=== PATIENT | male | born 2000 | race Two or more races ===

== ENCOUNTER 2024-12-19 15:44 | Emergency (ER) | payer OTHER ==
[2024-12-19 16:19] VITALS: RESP 16; TEMP 98.4; BMI 21.2
[2024-12-19] MEDS ORDERED: ACETAMINOPHEN 325 MG TABLET (FP) ONE (16:26)
[2024-12-19] MEDS: ACETAMINOPHEN 325 MG TABLET (FP) PO ONE (16:47)
[2024-12-19] MEDS ORDERED: TETRACAINE 0.5% OPHTH SOLN 2 ML BOTTLE ONE (17:41)
[2024-12-19] MEDS ORDERED: FLUORESCEIN NA 1 EA STRIP ONE (17:41)
[2024-12-19] MEDS: FLUORESCEIN NA 1 EA STRIP OD ONE (17:42)
[2024-12-19] MEDS: TETRACAINE 0.5% HCL 0.6ML DROPPER.BOTTLE OD ONE (17:42)
[2024-12-19] MEDS ORDERED: IBUPROFEN 400 MG TABLET (FP) PO ONE (19:51)
[2024-12-19] MEDS: IBUPROFEN 400 MG TABLET (FP) PO ONE (19:54)
[2024-12-19 20:41] VITALS: BP 119/77; PULSE 70
== END 2024-12-19 20:30 | disposition short-term general hospital (02) ==
LOC: JER 15:44
DX: S01.111A Laceration without foreign body of right eyelid and periocular area, initial encounter (principal); S80.212A Abrasion, left knee, initial encounter; V23.41XA Electric (assisted) bicycle driver injured in collision with car, pick-up truck or van in traffic accident, initial encounter; Y92.410 Unspecified street and highway as the place of occurrence of the external cause
CPT/HCPCS: 99285-25